=== PATIENT | female | born 1975 | race Caucasian/White ===

== ENCOUNTER 2016-09-04 08:37 | Outpatient (CLI) | payer OTHER | END 2016-09-04 08:38 | disposition home or self-care (01) | DX: K80.20 Calculus of gallbladder without cholecystitis without obstruction (principal) ==

== ENCOUNTER 2019-04-17 09:44 | Outpatient (CLI) | payer OTHER ==
--- NOTE | 2019-04-17 15:28 | XRAY Report ---
Reason: RIGHT FOOT PAIN Procedure Date: 04/17/2019 Accession Number: [id number] / [id number] Procedure: WCP - Foot 3 View RT CPT Code: FULL RESULT: EXAM: RIGHT FOOT RADIOGRAPHY EXAM DATE: 04/17/2019 01:52 PM. CLINICAL HISTORY: Right foot pain. COMPARISON: None. TECHNIQUE: 3 views. FINDINGS: Bones: Poor visualization of the base of the metatarsals with questionable lucency at the base of the fourth and fifth metatarsals seen on one view only. Mild inferior calcaneal spurring. Otherwise, no fractures or bone lesions. Joints: Normal. No subluxations. Soft Tissues: No foreign body seen. No soft tissue swelling. IMPRESSION: Please correlate questionable findings at the base of the fourth and fifth metatarsals to the area of tenderness. RADIA
== END 2019-04-17 23:59 | disposition home or self-care (01) ==
LOC: DI.WCP 09:44 → EDSTATUS 13:42 → DI.WCP 23:59
PROVIDERS: ATTEND Family Medicine
DX: M79.671 Pain in right foot (principal); R93.7 Abnormal findings on diagnostic imaging of other parts of musculoskeletal system

== ENCOUNTER 2021-03-06 13:19 | Outpatient (CLI) | payer OTHER ==
[2021-03-06 21:45] LABS: ESTIMATED AVERAGE GLUCOSE 103 mg/dL (70-100); HEMOGLOBIN A1c% 5.2 % (4.27-6.07)
== END 2021-03-06 23:59 | disposition home or self-care (01) ==
LOC: LAB.WCP 13:19
PROVIDERS: ATTEND Family Medicine
DX: E66.01 Morbid (severe) obesity due to excess calories (principal)
CPT/HCPCS: 36415; 80053; 80061; 83036; 83721; 84443; 85025

== ENCOUNTER 2022-02-10 06:43 | Outpatient (CLI) | payer OTHER ==
--- NOTE | 2022-02-11 08:31 | Ultrasound Report ---
PROCEDURE: Abdomen Limited INDICATIONS: RIGHT UPPER QUAD ABD PAIN TECHNIQUE: Real-time focused scanning was performed of the abdomen, with image documentation. COMPARISON: None FINDINGS: Several small gallstones are present. No gallbladder wall thickening or pericholecystic fl uid. The gallbladder appears normally distended. Mild to moderate hepatic steatosis. No focal hepatic mass. Visualized portions of the pancreas are normal. No intrahepatic or extra hepatic biliary ducta l dilatation. Right kidney unremarkable without shadowing calculus or hydronephrosis. IMPRESSION: Cholelithiasis. Mild to moderate hepatic steatosis. Reviewed by: Tang Kim MD on 02/11/2022 8:30 AM PDT Approved by: Tang Kim MD on 02/11/2022 8:30 AM PDT Station ID: [id number]
== END 2022-02-10 06:44 | disposition home or self-care (01) ==
LOC: DI 06:43
PROVIDERS: ATTEND Physician Assistant Medical
DX: K76.0 Fatty (change of) liver, not elsewhere classified (principal); R10.11 Right upper quadrant pain

== ENCOUNTER 2022-06-01 08:16 | Day surgery (SDC) | payer OTHER ==
--- NOTE | 2022-06-01 08:31 | ANESTHESIA ---
Pre-Anesthesia VS, & Labs - Diagnosis Family history of colon CA - Procedure colonoscopy - NPO >8 hours Last Fluid Intake: am prep - Is Patient ?: No - Lab Results Lab results reviewed: Yes Home Medications and Allergies Home Medications: Ambulatory Orders Famotidine [Zantac-360 (Famotidine)] 1 tab PO DAILY 05/29/22 Multivitamin 1 tab PO DAILY 05/29/22 Triamcinolone 0.1% Cream [Kenalog 0.1% Cream] 1 applic TOP DAILY 05/29/22 Famotidine [Zantac-360 (Famotidine)] 1 tab PO DAILY 05/29/22 Multivitamin 1 tab PO DAILY 05/29/22 Triamcinolone 0.1% Cream [Kenalog 0.1% Cream] 1 applic TOP DAILY 05/29/22 Allergies/Adverse Reactions: Allergies Allergy/AdvReac Type Severity Reaction Status Date / Time ethylenediamine Allergy Rash Verified 05/29/22 12:58 Anes History & Medical History - Anesthetic History Anesthesia Complications: reports: No previous complications Family history of Anesthesia Complications: Denies Family history of Malignant Hyperthermia: Denies - Medical History Cardiovascular: reports: None Gastrointestinal: reports: GERD, Cholelithiasis Skin: reports: Eczema History of Cancer?: No Exam General: Alert, Oriented x3 Dental: WNL Mouth Openin Fingerbreadth Neck Mobility: Normal Mallampati classification: II Respiratory: Lungs clear, Normal breath sounds, No respiratory distress Neurological: Normal speech Mental/Cognitive Status: Alert/Oriented X3, Normal for patient Cognitive Status: Within normal limits Plan Anesthesia Type: Total IV Consent for Procedure(s) Verified and Reviewed: No Code Status: Attempt Resuscitation ASA classification: 2-Mild systemic disease Is this case an emergency?: No
[2022-06-01] MEDS ORDERED: PROPOFOL 500 MG/50 ML 500 MG/50 ML VIAL ONE (08:40)
[2022-06-01] MEDS ORDERED: LACTATED RINGERS 1,000 ML IV ONE ×2 (08:55→09:59)
[2022-06-01] MEDS ORDERED: MIDAZOLAM 2 MG/2 ML VIAL ONE (09:08)
[2022-06-01 10:18] VITALS: BP 133/82
--- NOTE | 2022-06-01 10:39 | ANESTHESIA POST OP EVALUATION ---
Anesthesia Post Eval - Post Anesthesia Eval Vitals: Last Vital Signs Temp 37.2 C 06/01/22 09:59 Pulse 81 06/01/22 10:18 Resp 18 06/01/22 10:18 BP 133/82 H 06/01/22 10:18 Pulse Ox 100 06/01/22 10:18 O2 Flow Rate CV Function Including HR & BP: Stable Pain Control: Satisfactory Nausea & Vomiting: Negative Mental Status: Baseline Respiratory Status: Airway Patent Hydration Status: Satisfactory Anesthesia Complications: None
== END 2022-06-01 08:17 | disposition home or self-care (01) ==
LOC: SDS 08:16
PROVIDERS: ATTEND Surgery
DX: Z12.11 Encounter for screening for malignant neoplasm of colon (principal); K57.30 Diverticulosis of large intestine without perforation or abscess without bleeding; Z80.0 Family history of malignant neoplasm of digestive organs; E66.9 Obesity, unspecified; Z68.41 Body mass index [BMI] 40.0-44.9, adult
CPT/HCPCS: 45378; J7120

== ENCOUNTER 2023-05-28 14:59 | Outpatient (CLI) | payer OTHER ==
--- NOTE | 2023-05-28 20:06 | Ultrasound Report ---
PROCEDURE: Pelvic w/Transvaginal INDICATIONS: AUB TECHNIQUE: Real-time scanning was performed of the pelvic organs, with image documentation. Additional endovagi nal scanning was necessary due to incomplete visualization of the adnexal and endometrial structures by transabdominal scanning. COMPARISON: None. FINDINGS: Uterus: Uterus is anteverted and normal in size at 10.6 x 6 x 4.6 cm. The myometrium is heterogeneo us. The endometrium measures 6 mm in combined thickness. No fibroids. Isoechoic mass in the cervix measuring 1 x 0.7 x 0.4 cm. No internal vascularity demonstrated. Trace fluid in the cervix. Ovaries: The right ovary measures 6 x 5.8 x 5.4 cm, with a calculated ovarian volume of 98 cc. The left ovary measures 3.2 x 1.9 x 1.6 cm, with a calculated ovarian volume of 5 cc. The ovaries have a normal sonographic appearance. Less than 12 follicles can be seen in each ovary. Right ovarian ane choic cyst measuring 5.1 x 4.6 x 3.4 cm. No internal vascularity. No adnexal masses are seen. Other: No pathologic free abdominal or pelvic fluid. IMPRESSION: 1. Isoechoic mass in the cervix measuring 1 cm. Suspect a cervical polyp. 2. Endometrium measures 6 mm. 3. Right ovarian anechoic cyst measuring 5.1 cm. Gynecological consultation is recommended. Reviewed by: Denilson Crowley MD on 05/28/2023 8:05 PM PDT Approved by: Denilson Crowley MD on 05/28/2023 8:05 PM PDT Station ID: [id number]
== END 2023-05-28 15:00 | disposition home or self-care (01) ==
LOC: DI 14:59
PROVIDERS: ATTEND Nurse Practitioner
DX: N88.9 Noninflammatory disorder of cervix uteri, unspecified (principal); N83.201 Unspecified ovarian cyst, right side; N93.9 Abnormal uterine and vaginal bleeding, unspecified

== ENCOUNTER 2023-07-12 13:14 | Outpatient (CLI) | payer OTHER ==
[~2023-07-12 13:14] MED LIST: GADOTERATE MEGLUMINE 10 MMOL/20 ML VIAL ONE; GADOTERATE MEGLUMINE 5 MMOL/10 ML VIAL ONE
[2023-07-12] MEDS ORDERED: iohexoL-300 100 ML VIAL IVP ONE (15:40)
[2023-07-12] MEDS ORDERED: DIATRIZOATE MEGLU/DIATRIZO SOD 30 ML BOTTLE PO ONE (15:41)
--- NOTE | 2023-07-12 16:15 | MRI Report ---
PROCEDURE: PELVIS W/WO INDICATIONS: PELVIC PAIN, ABD PAIN TECHNIQUE: Pre and post contrast magnetic resonance images were obtained of the pelvis using multiple sequences and multiple planes. IV contrast was used. COMPARISON: Ultrasound 05/28/2023, same-day CT FINDINGS: Image quality: Good Lower abdomen: No pathologic ascites or bowel obstruction. Colonic diverticula are seen, consider cor relation with age-appropriate colonoscopy results. Bladder: Unremarkable Reproductive organs: Endometrium measures 1.2 cm. No focal endometrial mass is identified. Optional z one is within normal limits. No enhancing endometrial mass is identified. Mild heterogeneity of the cervical stroma, likely repres enting nabothian cysts There is nonspecific subendometrial cystic changes at the left uterine fundus. The left ovary is small. The right ovary contains multiple cysts, the largest measuring up to 5.6 x 4 .8 cm. No suspicious nodular enhancement. In the endocervix, there may be a small region of enhancement measuring a length of 7 to 8 mm ( ), though this is probably smaller than the sonographic measurement. On precontrast T1-weighted images, no evidence of intrinsically T1 hyperintense endometriosis deposit s. Rectum: Unremarkable. Vessels and lymph nodes: No evidence of aneurysmal vessel or pathologic adenopathy by size criteria Pelvic wall: Unremarkable Bones: No acute or suspicious osseous finding. IMPRESSION: Multiple right ovarian versus paraovarian cysts, the largest of which measures up to 5.8 cm. In the s etting of persistent pelvic pain, consider gynecologic follow-up. Questionable small region of enhancement within the endocervix, that appears smaller than the sonogra phic possible cervical mass. Consider follow-up ultrasound or direct visualization depending on clini nathalie context. Cervical stroma appears otherwise unremarkable. Endometrium measures 1.2 cm, which is at the upper limit of normal if patient is considered perimenop ausal. Other findings as above. Reviewed by: Alessandro Pelaez MD on 07/12/2023 4:13 PM PST Approved by: Alessandro Pelaez MD on 07/12/2023 4:13 PM PST Station ID: [id number]
[2023-07-12] MEDS ORDERED: GADOTERATE MEGLUMINE 5 MMOL/10 ML VIAL IVP ONE (17:45)
[2023-07-12] MEDS ORDERED: GADOTERATE MEGLUMINE 10 MMOL/20 ML VIAL IVP ONE (17:45)
--- NOTE | 2023-07-12 18:35 | CT Report ---
PROCEDURE: ABDOMEN/PELVIS W INDICATIONS: PELVIC PAIN, ABD PAIN CONTRAST: 100mL Omni 300 TECHNIQUE: After the administration of oral and intravenous contrast, 5 mm thick sections acquired from the diap hragms to the symphysis. 5 mm thick coronal and sagittal reformats were acquired. For radiation dos e reduction, the following was used: automated exposure control, adjustment of mA and/or kV accordin g to patient size. COMPARISON: Pelvic MRI dated 07/12/2023, pelvic ultrasound dated 05/28/2023 FINDINGS: Image quality: Excellent. Lung bases and heart: Unremarkable. Liver: No solid mass.. Mild diffuse hepatic steatosis. Gallbladder and biliary tree: No radiopaque stones or wall thickening. No biliary dilation. Spleen: No splenomegaly. Pancreas: No pancreatic ductal dilation. Adrenals: No adrenal nodule. Kidneys and ureters: No hydronephrosis. No renal cystic lesion which requires follow up. No solid mas s. Stomach, bowel, and peritoneum: Moderate hiatal hernia. No bowel distension. No pathologic free fluid . There is prominence of the terminal ileum with fecalization of content suggesting probable prolonge d colonic bowel transit/constipation. Mild diverticulosis without evidence of diverticulitis. Lymph nodes: No central or retroperitoneal adenopathy. Vessels: No infrarenal aortic aneurysm. PELVIS Reproductive organs: Right ovarian cystic lesion measuring 6.1 x 5.3 x 5.2 cm.. Bladder: No abnormal wall thickening, accounting for underdistension. Pelvic lymph nodes: No pelvic adenopathy by size criteria. Bones: No aggressive osseous abnormality. Other: No significant ventral or inguinal hernia. IMPRESSION: 1. 6.1 x 5.3 x 5.2 cm right adnexal cyst. 2. Moderate hiatal hernia. 3. Mild diverticulosis without evidence of diverticulitis. Reviewed by: Chapin Piedra MD on 07/12/2023 6:33 PM PST Approved by: Chapin Piedra MD on 07/12/2023 6:33 PM PST Station ID: [id number]
== END 2023-07-12 13:15 | disposition home or self-care (01) ==
LOC: DI 13:14
PROVIDERS: ATTEND Nurse Practitioner
DX: R10.2 Pelvic and perineal pain (principal); K57.30 Diverticulosis of large intestine without perforation or abscess without bleeding; N83.201 Unspecified ovarian cyst, right side; R93.89 Abnormal findings on diagnostic imaging of other specified body structures; K44.9 Diaphragmatic hernia without obstruction or gangrene
CPT/HCPCS: 72197; 74177; A9575; Q9963; Q9967

== ENCOUNTER 2023-07-23 13:24 | Outpatient (CLI) | payer OTHER ==
[2023-07-23 17:39] LABS: BASOPHILS # (AUTO) 0.1 10^3/uL (0.0-0.1); BASOPHILS % (AUTO) 0.8 %; EOSINOPHILS # (AUTO) 0.2 10^3/uL (0.0-0.7); HCT - HEMATOCRIT 39.5 % (37.0-47.0); HGB - HEMOGLOBIN 11.8 g/dL (12.0-16.0); LYMPHOCYTES # (AUTO) 2.3 10^3/uL (1.5-3.5); LYMPHOCYTES % (AUTO) 27.2 %; MEAN CORPUSCULAR HEMOGLOBIN 23.6 pg (27.0-31.0); MEAN CORPUSCULAR HGB CONC 29.9 g/dL (32.0-36.0); MEAN CORPUSCULAR VOLUME 78.8 fL (81.0-99.0); MEAN PLATELET VOLUME 12.6 fL (7.9-10.8); MONOCYTES # (AUTO) 0.7 10^3/uL (0.0-1.0); MONOCYTES % (AUTO) 8.1 %; NEUTROPHILS # (AUTO) 5.2 10^3/uL (1.5-6.6); NEUTROPHILS % (AUTO) 61.7 %; PLT - PLATELET COUNT 305 10^3/uL (130-450); RED BLOOD COUNT 5.01 10^6/uL (4.20-5.40); RED CELL DISTRIBUTION WIDTH 17.1 % (12.0-15.0); WHITE BLOOD COUNT 8.5 x10^3/uL (4.8-10.8)
[2023-07-23 18:51] LABS: FERRITIN 6.1 ng/mL (11.0-306.8)
== END 2023-07-23 13:25 | disposition home or self-care (01) ==
LOC: LAB.N 13:24
PROVIDERS: ATTEND Physician Assistant
DX: N83.291 Other ovarian cyst, right side (principal); D50.8 Other iron deficiency anemias
CPT/HCPCS: 36415; 82378; 82728; 83540; 84466; 85025

== ENCOUNTER 2024-01-12 08:24 | Outpatient (CLI) | payer OTHER ==
[2024-01-12 11:37] LABS: HCG UR QUAL NEGATIVE
[2024-01-12 11:51] LABS: BASOPHILS % (AUTO) 0.6 %; EOSINOPHILS # (AUTO) 0.2 10^3/uL (0.0-0.7); EOSINOPHILS % (AUTO) 2.2 %; HCT - HEMATOCRIT 42.8 % (37.0-47.0); HGB - HEMOGLOBIN 13.1 g/dL (12.0-16.0); LYMPHOCYTES # (AUTO) 1.8 10^3/uL (1.5-3.5); LYMPHOCYTES % (AUTO) 26.9 %; MEAN CORPUSCULAR HEMOGLOBIN 25.6 pg (27.0-31.0); MEAN CORPUSCULAR HGB CONC 30.6 g/dL (32.0-36.0); MEAN CORPUSCULAR VOLUME 83.8 fL (81.0-99.0); MEAN PLATELET VOLUME 12.4 fL (7.9-10.8); MONOCYTES # (AUTO) 0.5 10^3/uL (0.0-1.0); MONOCYTES % (AUTO) 7.5 %; NEUTROPHILS # (AUTO) 4.3 10^3/uL (1.5-6.6); NEUTROPHILS % (AUTO) 62.7 %; PLT - PLATELET COUNT 322 10^3/uL (130-450); RED BLOOD COUNT 5.11 10^6/uL (4.20-5.40); RED CELL DISTRIBUTION WIDTH 14.9 % (12.0-15.0); WHITE BLOOD COUNT 6.8 x10^3/uL (4.8-10.8)
[2024-01-12 12:27] LABS: FERRITIN 5.3 ng/mL (11.0-306.8)
== END 2024-01-12 08:25 | disposition home or self-care (01) ==
LOC: LAB.N 08:24
PROVIDERS: ATTEND Obstetrics & Gynecology
DX: Z01.812 Encounter for preprocedural laboratory examination (principal); N83.201 Unspecified ovarian cyst, right side; D50.8 Other iron deficiency anemias
CPT/HCPCS: 36415; 81025; 82728; 83540; 84466; 85025

== ENCOUNTER 2024-02-03 06:25 | Day surgery (SDC) | payer OTHER ==
[~2024-02-03 06:25] MED LIST changes: +ATROPINE ABBOJECT 1 MG/10 ML SYRINGE IVP PRN; -GADOTERATE MEGLUMINE 10 MMOL/20 ML VIAL ONE; -GADOTERATE MEGLUMINE 5 MMOL/10 ML VIAL ONE; +HYDROmorphone 0.5 MG/0.5 ML SYRINGE IVP PRN; +MORPHINE 2 MG/ML CARPUJECT IVP PRN; +NALOXONE 0.4 MG/ML VIAL IVP PRN; +ONDANSETRON 4 MG/2 ML VIAL IVP PRN; +ePHEDrine 50 MG/ML VIAL IVP PRN; +fentaNYL 100 MCG/2 ML VIAL IVP PRN
[2024-02-03] MEDS: LACTATED RINGERS 1,000 ML IV ONE (06:28)
[2024-02-03 06:42] LABS: HCG UR QUAL NEGATIVE
[2024-02-03] MEDS ORDERED: LACTATED RINGERS 1,000 ML IV SCH (07:00)
--- NOTE | 2024-02-03 07:03 | ANESTHESIA ---
Pre-Anesthesia VS, & Labs Height: 5 ft 10 in Weight (kg): 135 kg Body Mass Index: 42.7 BMI Classification: Morbidly Obese - Is Patient ?: No <Rachid Lanza - Last Filed: 02/03/24 07:01> - NPO >8 hours <Elizabeth Hobbs - Last Filed: 02/03/24 08:09> - Diagnosis postmestrual bleeding (Rachid Lanza) right ovarian cyst (Elizabeth Hobbs) - Procedure lap oopherectomy (Rachid Lanza) Vital Signs: Temp Pulse Resp BP Pulse Ox O2 Flow Rate 36.2 C L 78 16 140/89 H 99 0 02/03/24 06:45 02/03/24 06:45 02/03/24 06:45 02/03/24 06:45 02/03/24 06:45 02/03/24 06:45 Home Medications and Allergies <Rachid Lanza - Last Filed: 02/03/24 07:01> <Elizabeth Hobbs - Last Filed: 02/03/24 08:09> Active Medications Atropine Sulfate (Atropine Abboject 1 Mg/10 Ml Syringe) 0.5 mg IVP Q5M PRN PRN Reason: Bradycardia Stop: 02/04/24 06:23 Ephedrine Sulfate (Ephedrine 50 Mg/Ml Vial) 10 mg IVP Q5M PRN PRN Reason: HYPOTENSION Stop: 02/04/24 06:23 Fentanyl (Fentanyl 100 Mcg/2 Ml Vial) 25 - 50 mcg IVP Q5M PRN PRN Reason: BREAKTHROUGH PAIN (2nd Choice) Stop: 02/04/24 06:23 Hydromorphone HCl (Hydromorphone 0.5 Mg/0.5 Ml Syringe) 0.2 - 0.6 mg IVP Q5M PRN PRN Reason: PAIN (First Choice) Stop: 02/04/24 06:23 Lactated Ringer's (Lr) 1,000 mls @ 100 mls/hr IV .Q10H BRAEDEN Stop: 02/03/24 16:59 Morphine Sulfate (Morphine 2 Mg/Ml Carpuject) 2 - 4 mg IVP Q5M PRN PRN Reason: PAIN (3rd Choice) Stop: 02/04/24 06:23 Naloxone HCl (Naloxone 0.4 Mg/Ml Vial) 0.1 mg IVP Q2M PRN PRN Reason: RESP RATE <8 Stop: 02/04/24 06:23 Ondansetron HCl (Ondansetron 4 Mg/2 Ml Vial) 4 mg IVP ONCE PRN PRN Reason: N/V (First Choice) Stop: 02/04/24 06:23 Scopolamine HBr (Scopolamine Patch) 1 patch TOP Q3D BRAEDEN Last Admin: 02/03/24 07:16 Dose: 1 patch Multivitamin 1 tab PO DAILY 05/29/22 Cholecalciferol [Vitamin D3] 25 mcg PO DAILY 01/10/24 Famotidine [Pepcid] 20 mg PO DAILY 01/10/24 Ferrous Sulfate [Feosol] 325 mg PO DAILY 01/10/24 Ibuprofen [Motrin] 600 mg PO Q6H PRN 01/10/24 [place]-3/Dha/Epa/Fish Oil [Fish Oil 1,000 mg Softgel] 1 each PO DAILY 01/10/24 glucosamine HCL [Glucosamine HCl] 1,500 mg PO DAILY 01/10/24 Allergies/Adverse Reactions: Allergies Allergy/AdvReac Type Severity Reaction Status Date / Time ethylenediamine Allergy Rash Verified 05/29/22 12:58 wheat Allergy Nausea Verified 01/10/24 13:59 Anes History & Medical History - Anesthetic History Anesthesia Complications: reports: Other-see comment (Dizziness and motion sickness) - Medical History Cardiovascular: reports: None Pulmonary: reports: None Gastrointestinal: reports: GERD, Hiatal hernia, Cholelithiasis Urinary: reports: None Musculoskeletal: reports: Osteoarthritis Endocrine/Autoimmune: reports: None Skin: reports: Eczema - Surgical History General: reports: Cholecystectomy, Colonoscopy <Rachid Lanza - Last Filed: 02/03/24 07:01> - Medical History Other Past Medical History: Recent covid infection. Asymptomatic other than cough <Elizabeth Hobbs - Last Filed: 02/03/24 08:09> Exam General: Alert, Oriented x3, Cooperative Dental: WNL Mouth Openin Fingerbreadth Mallampati classification: III Thyromental Distance: less than 4 cm <Rachid Lanza - Last Filed: 02/03/24 07:01> Plan Anesthesia Type: General Consent for Procedure(s) Verified and Reviewed: Yes Code Status: Attempt Resuscitation ASA classification: 2-Mild systemic disease Is this case an emergency?: No <Rachid Lanza - Last Filed: 02/03/24 07:01> ASA classification: 2-Mild systemic disease <Elizabeth Hobbs - Last Filed: 02/03/24 08:09>
[2024-02-03] MEDS ORDERED: LIDOCAINE 1%-EPI 1:100000 20 ML MDV ONE (07:08)
[2024-02-03] MEDS ORDERED: BUPIVACAINE 0.5% PF 10 ML VIAL ONE (07:08)
[2024-02-03] MEDS: LIDOCAINE 1%-EPI 1:100000 20 ML MDV SUBQ ONE (07:10)
[2024-02-03] MEDS: BUPIVACAINE 0.5% PF 10 ML VIAL SUBQ ONE ×2 (07:10)
[2024-02-03] MEDS ORDERED: SCOPOLAMINE PATCH TOP ONE (07:14)
[2024-02-03] MEDS: SCOPOLAMINE PATCH TOP SCH (07:16)
[2024-02-03] MEDS ORDERED: MIDAZOLAM 2 MG/2 ML VIAL ONE (07:46)
[2024-02-03] MEDS ORDERED: DEXAMETHASONE 4 MG/ML VIAL ONE (07:46)
[2024-02-03] MEDS ORDERED: ONDANSETRON 4 MG/2 ML VIAL ONE (07:46)
[2024-02-03] MEDS ORDERED: PROPOFOL 200 MG/20 ML VIAL IVP ONE ×3 (07:46→08:51)
[2024-02-03] MEDS ORDERED: fentaNYL 100 MCG/2 ML VIAL ONE ×2 (07:46→08:31)
[2024-02-03] MEDS ORDERED: SUGAMMADEX 200 MG/2 ML VIAL IVP ONE (08:13)
[2024-02-03] MEDS ORDERED: diphenhydrAMINE INJ 50 MG/ML VIAL ONE (08:39)
[2024-02-03] MEDS ORDERED: KETOROLAC 30 MG/ML VIAL ONE (09:16)
[2024-02-03] MEDS ORDERED: HYDROcod/ACETAM 10 MG/325 MG TABLET PO PRN (09:22)
[2024-02-03] MEDS ORDERED: HYDROmorphone 1 MG/ML CARPUJECT ONE (09:23)
--- NOTE | 2024-02-03 09:28 | OPERATIVE REPORT ---
Operative Report - General Procedure Date: 02/03/24 Planned Procedure: Laparoscopic right oophorectomy and bilateral salpingectomy Pre-Op Diagnosis: Pelvic pain, right ovarian cyst Procedure Performed: Laparoscopic right oophorectomy and bilateral salpingectomy, Peritoneal biopsies Post Op Diagnosis: Pelvic pain, right ovarian cyst - Procedure Note Primary Surgeon: Juanjose Quezada MD Secondary Surgeon: GABRIELA Browning Anesthesia Provider: Elizabeth Hobbs CRNA Anesthesia Technique: General ET tube Pathology: Pelvic washings Right ovary, ovarian cyst, and fallopian tube Left fallopian tubes Peritoneal biopsy IV Fluids (mL): 1,200 Estimated Blood Loss (mL): 10 Findings: Normal-appearing liver. Normal-appearing uterus, large cyst on right ovary. Left tube and pelvic sidewall with endometrial implants and several areas Complications: None - Other Other Information/Narrative: Patient was counseled on the risk, benefits, alternatives of surgery including infection, damage to other organs, requiring larger surgeries, blood loss, anesthesia complications. Discussed open versus laparoscopic procedure. She agreed and consented to procedure. Patient was taken to the OR and placed in the dorsal lithotomy position using Iam stirrups after adequate anesthesia was obtained. Patient was prepped and draped in the usual fashion. Time out was taken. A bivalve speculum was used to visualize the cervix and a uterine manipulator was placed. 2 mL of 0.25% Marcaine was used below the umbilicus. An 11 blade scalpel was used to incise the skin. Direct visual entry was used to place the infraumbilical trocar. Upon entering the peritoneal cavity, low flow was used to ensure appropriate positioning. Upon visualization of the abdominal cavity, high flow was then initiated. 2 additional trocars was placed under visualization in a similar fashion in the right and left lower quadrants. Upon survey of the pelvis, large cyst was seen on the right ovary. Using a suction wire spring relay adjuster, we took pelvic washings and sent for cytology. This was elevated and grasped by the tube. The IP ligament was identified and elevated away from the ureter and coagulated and transected with the LigaSure device. This is carried up towards the uterus. We then switched to the uterine side of the cyst and the tube from the uterus working down to the utero- ovarian ligament and then transected the entire specimen. An 11 mm trocar was then substituted in the umbilical incision. The Endo Catch bag was used to col lect the specimen and bring to the skin. Trocar was removed, and the cyst was incised and suction from within the Endo Catch bag and the specimen is removed from the body. Attention was then turned to the left tube which appeared to have an endometrial implant in the middle portion. We also noted several endometrium plants along the pelvic wall.After visualization of the left fallopian tube, it was grasped with an atraumatic grasper. The mesosalpinx was cauterized and cut with a Ligasure device. 3 areas of what appeared to be endometrial implants along the peritoneum were biopsied and sent to pathology. The abdomen was reviewed for hemostasis, and a healthy-appearing liver was noted. The trocars were then removed, and abdomen was evacuated of gas. The trocar sites were then closed with a 4-0 Monocryl in a sub-cuticular fashion and covered with Dermabond. Patient was taken to the PACU in stable condition. I appreciate the assistance of GABRIELA Browning and Dr. More during this procedure, and the assistance in retraction, visualization, dissection, and overall assistance during the case were instrumental to the patient's wellbeing.
[2024-02-03] MEDS: LACTATED RINGERS 800 ML IV ONE (09:43)
[2024-02-03] MEDS ORDERED: HYDROcod/ACETAM 5/325 MG TABLET ONE (11:13)
[2024-02-03 12:09] VITALS: BP 123/60; O2SAT 98
--- NOTE | 2024-02-03 17:29 | ANESTHESIA POST OP EVALUATION ---
Anesthesia Post Eval - Post Anesthesia Eval Vitals: Last Vital Signs Temp 36.3 C L 02/03/24 11:15 Pulse 68 02/03/24 11:15 Resp 16 02/03/24 11:15 BP 123/60 02/03/24 11:15 Pulse Ox 98 02/03/24 11:15 O2 Flow Rate 0 02/03/24 06:45 CV Function Including HR & BP: Stable Pain Control: Satisfactory Nausea & Vomiting: Negative Mental Status: Baseline Respiratory Status: Airway Patent Hydration Status: Satisfactory Anesthesia Complications: None
== END 2024-02-03 06:26 | disposition home or self-care (01) ==
LOC: OR 06:25
PROVIDERS: ATTEND Obstetrics & Gynecology
PROC: 0W9G4ZX Drainage of Peritoneal Cavity, Percutaneous Endoscopic Approach, Diagnostic (ICD-10-PCS; 2024-02-03)
PROC: 0UT74ZZ Resection of Bilateral Fallopian Tubes, Percutaneous Endoscopic Approach (ICD-10-PCS; principal; 2024-02-03 07:30)
PROC: 0UT04ZZ Resection of Right Ovary, Percutaneous Endoscopic Approach (ICD-10-PCS; 2024-02-03 07:30)
DX: N83.291 Other ovarian cyst, right side (principal); R10.2 Pelvic and perineal pain; N80.30 Endometriosis of pelvic peritoneum, unspecified
CPT/HCPCS: 81025